=== PATIENT | male | born 1960 | race African-American/Black ===

== ENCOUNTER 2018-03-20 00:53 | Emergency (ER) | payer MEDICAID ==
[~2018-03-20] VITALS: Ht 172.7 cm; Wt 67.5 kg
[2018-03-20 00:59] VITALS: BP 147/92
[2018-03-20] MEDS ORDERED: AZITHROMYCIN 250 MG TABLET ONE (01:26)
[2018-03-20] MEDS ORDERED: CEFTRIAXONE 250 MG ONE (01:26)
[2018-03-20] MEDS ORDERED: CEFTRIAXONE 250 MG IM ONE (01:30)
[2018-03-20] MEDS ORDERED: AZITHROMYCIN 250 MG TABLET PO ONE (01:30)
== END 2018-03-20 01:49 | disposition home or self-care (01) ==
LOC: ED 01:25
DX: Z20.2 Contact with and (suspected) exposure to infections with a predominantly sexual mode of transmission (principal); R36.9 Urethral discharge, unspecified; R30.0 Dysuria
CPT/HCPCS: 96372; 99283; J0696